=== PATIENT | male | born 1960 | race American Indian/Alaskan Native ===

== ENCOUNTER 2017-11-11 21:43 | Emergency (ER) | payer SELFPAY ==
[2017-11-12] MEDS ORDERED: ZOFRAN IV ONE (01:12)
[2017-11-12] MEDS ORDERED: DILAUDID IV ONE ×2 (01:12→02:00)
[2017-11-12] MEDS ORDERED: NACL 0.9% 1000 ML 1,000 ML IV ONE (01:16)
--- NOTE | 2017-11-12 01:21 | Emergency Department Report ---
ED Abdominal Pain HPI - General Chief Complaint: Abdominal Pain Stated Complaint: PAINFUL URINATION Time Seen by Provider: 11/12/17 01:05 Source: patient Mode of arrival: Ambulatory Limitations: No Limitations - History of Present Illness Initial Comments: 56 yo male who comes in today due to abdominal pain and gross hematuria. The patient states that he was recently treated for prostate cancer with seed implants/radiation. In the ED, he is complaining of extreme abdominal pain, hematuria, and not being able to urinate. Surgery was on Wednesday of this week. MD Complaint: abdominal pain -: This afternoon Location: suprapubic (genital area ) Radiation: none Severity scale (0 -10): 10 Quality: aching, sharp, other (throbbing ) Consistency: constant Improves With: nothing Worsens With: movement Context: other (recent urological surgery/seed implants ) Associated Symptoms: dysuria (hematuria ) Treatments Prior to Arrival: other (none) - Related Data Home Medications Medication Instructions Recorded Confirmed Last Taken Amlodipine Besylate/Benazepril 1 each PO DAILY 11/11/17 11/11/17 11/11/17 [Amlodipine-Benazepril 5-20 mg] Metformin Xr (Nf) [Metformin ER 750 mg PO DAILY 11/11/17 11/11/17 11/11/17 (Nf)] Terazosin [Hytrin] 2 mg PO QHS 11/11/17 11/11/17 11/11/17 Previous Rx's Medication Instructions Recorded Last Taken Type HYDROcodone/ACETAMINOPHEN [[place] 1 each PO Q8HR PRN #20 tablet 11/12/17 Unknown Rx 7.5-325 Tablet] Allergies Allergy/AdvReac Type Severity Reaction Status Date / Time No Known Allergies Allergy Unverified 11/11/17 22:15 ED Review of Systems ROS: Stated complaint: PAINFUL URINATION Other details as noted in HPI Constitutional: malaise, weakness Eyes: denies: eye pain, eye discharge, vision change ENT: denies: ear pain, throat pain Respiratory: denies: cough, shortness of breath, wheezing Cardiovascular: denies: chest pain, palpitations Endocrine: no symptoms reported Gastrointestinal: as per HPI Genitourinary: dysuria, hematuria Musculoskeletal: denies: back pain, joint swelling, arthralgia Skin: denies: rash, lesions Neurological: denies: headache, weakness, paresthesias Psychiatric: denies: anxiety, depression Hematological/Lymphatic: denies: easy bleeding, easy bruising ED Past Medical Hx - Past Medical History Previous Medical History?: Yes Hx Hypertension: Yes Hx Diabetes: Yes Additional medical history: protate on chemo - Surgical History Past Surgical History?: No - Social History Smoking Status: Never Smoker Substance Use Type: None - Medications Home Medications: Home Medications Medication Instructions Recorded Confirmed Last Taken Type Amlodipine Besylate/Benazepril 1 each PO DAILY 11/11/17 11/11/17 11/11/17 History [Amlodipine-Benazepril 5-20 mg] Metformin Xr (Nf) [Metformin ER 750 mg PO DAILY 11/11/17 11/11/17 11/11/17 History (Nf)] Terazosin [Hytrin] 2 mg PO QHS 11/11/17 11/11/17 11/11/17 History HYDROcodone/ACETAMINOPHEN [[place] 1 each PO Q8HR PRN #20 tablet 11/12/17 Unknown Rx 7.5-325 Tablet] ED Physical Exam - General Limitations: No Limitations General appearance: anxious - Head Head exam: Present: atraumatic, normocephalic - Eye Eye exam: Present: normal appearance - ENT ENT exam: Present: mucous membranes moist - Neck Neck exam: Present: normal inspection - Respiratory Respiratory exam: Present: normal lung sounds bilaterally. Absent: respiratory distress - Cardiovascular Cardiovascular Exam: Present: tachycardia - GI/Abdominal GI/Abdominal exam: Present: tenderness (suprapubic) - Rectal Rectal exam: Present: deferred - exam: Present: urethral discharge (gross hematuria) - Extremities Exam Extremities exam: Present: normal inspection - Back Exam Back exam: Present: normal inspection - Neurological Exam Neurological exam: Present: alert - Psychiatric Psychiatric exam: Present: anxious - Skin Skin exam: Present: warm, dry, intact, normal color. Absent: rash ED Course Vital Signs 11/11/17 11/11/17 11/12/17 21:59 22:11 02:00 Temperature 99.6 F Pulse Rate 108 H Respiratory 20 18 20 Rate Blood Pressure 145/80 O2 Sat by Pulse 100 99 Oximetry 11/12/17 02:30 Temperature Pulse Rate Respiratory 20 Rate Blood Pressure O2 Sat by Pulse Oximetry - Reevaluation(s) Reevaluation #1: 11/12/17 05:27 I spoke with [facility] just now and she stated that no one has returned their calls/pages (urology and radiation oncology). She said that she would try again and give us a call back. Reevaluation #2: 11/12/17 06:12 I spoke with radiation oncology about the patient and she okayed placing a hightower catheter. Home with a hightower catheter and pain control. ED Medical Decision Making - Lab Data Result diagrams: 11/12/17 00:56 11/12/17 00:56 - Radiology Data Radiology results: report reviewed Prostate cancer Gross hematuria Bladder outlet obstruction Urinary retention - Medical Decision Making Prostate cancer Gross hematuria Bladder outlet obstruction Urinary retention - Differential Diagnosis Prostate cancer, gross hematuria, urinary retention, bladder outlet obstruc Critical care attestation.: If time is entered above; I have spent that time in minutes in the direct care of this critically ill patient, excluding procedure time. ED Disposition Clinical Impression: Urinary retention, Gross hematuria, Prostate cancer Disposition: - TO HOME OR SELFCARE Is pt being admited?: No Does the pt Need Aspirin: No Condition: Stable Instructions: Urinary Retention in Men (ED), Acute Hematuria (ED), Prostate Cancer (GEN) Additional Instructions: Take medicine as prescribed. Follow up with your provider as needed. Prescriptions: HYDROcodone/ACETAMINOPHEN [[place] 7.5-325 Tablet] 1 each PO Q8HR PRN #20 tablet PRN Reason: Pain Referrals: RELL LAUGHLIN MD [Primary Care Provider] - 3-5 Days Time of Disposition: 06:17
[2017-11-12 01:30] LABS: Hematocrit 23.3 % (35.5-45.6); Hemoglobin 8.1 gm/dl (11.8-15.2); Mean Corpuscular HGB Conc 35 % (32-34); Mean Corpuscular Hemoglobin 33 pg (28-32); Mean Corpuscular Volume 94 fl (84-94); White Blood Count 8.4 K/mm3 (4.5-11.0)
[2017-11-12 01:31] LABS: Platelet Count 87 K/mm3 (140-440)
[2017-11-12 01:34] LABS: Alanine Aminotransferase 21 units/L (7-56); Albumin 4.3 g/dL (3.9-5); Alkaline Phosphatase 63 units/L (35-129); Anion Gap 19 mmol/L; BUN/Creatinine Ratio 14; Blood Urea Nitrogen 19 mg/dL (9-20); Calcium 8.6 mg/dL (8.4-10.2); Carbon Dioxide 24 mmol/L (22-30); Chloride 95.3 mmol/L (98-107); Glucose 210 mg/dL (75-100); Lipase 21 units/L (13-60); Potassium 4.3 mmol/L (3.6-5.0); Sodium 134 mmol/L (137-145); Total Protein 6.4 g/dL (6.3-8.2)
[2017-11-12 01:39] LABS: INR 1.13 (0.87-1.13)
[2017-11-12] MEDS ORDERED: NACL ONE (01:41)
[2017-11-12 02:24] LABS: Basophils % (Manual) 0 % (0.0-1.8); Blastocytes % (Manual) 0 %; Eosinophils % (Manual) 0 % (0.0-4.3)
[2017-11-12 02:25] LABS: Microcytosis 1+; Target Cells 1+
[2017-11-12 02:26] LABS: Anisocytosis 1+; Diff Status Complete; Platelet Estimate Appears Decreased
--- NOTE | 2017-11-12 03:41 | Cat Scan Report ---
FINAL REPORT EXAM: CT ABDOMEN PELVIS W CONTRAST. HISTORY: Abdominal pain, hematuria. Status post radiation prostate procedure for prostate cancer. TECHNIQUE: Axial CT images of the abdomen and pelvis were obtained, following the administration of intravenous contrast only. Delayed axial images and coronal and sagittal reformatted images were also obtained. No prior studies are available for comparison. FINDINGS: The liver, biliary tree, pancreas, adrenal glands, and left kidney are unremarkable. A 3.0 cm cyst is seen in the right lower renal pole, which contains thin septation at its lateral aspect. An additional 5 mm low attenuating lesion is seen in the medial right upper pole, too small to characterize. There are multiple subcentimeter calcified gallstones. The spleen is enlarged, measuring up to 18.5 cm in length. Evaluation of the bowel is limited due to lack of oral contrast. There is a small hiatal hernia. There is moderate residual stool in the colon. There is no intestinal obstruction or free air. Of note the, the appendix is normal. There is mild distal rectal wall thickening, which is nonspecific and may represent post radiation changes. Clinical correlation is recommended. The abdominal aorta is normal in caliber. There is no pathologic abdominal or pelvic lymphadenopathy. There is no free or loculated fluid collection. There are minimal bilateral fat containing inguinal hernias. The urinary bladder is markedly distended, with superior tip extending to the level of the umbilicus. The inferior aspect of the prostate gland is enlarged, measuring 5.3 x 5.0 cm. There is diffuse heterogeneity of the prostate gland. There is a lobulated, heterogeneous soft tissue mass which protrudes into the bladder base measuring at least 7.7 x 7.3 x 8.2 cm. This contains 4.3 cm rounded central component which is slightly hypodense, possibly necrosis, with scattered peripheral foci of air. This intraluminal heterogeneous component is contiguous with the prostate gland, and most likely represents necrotic prostate tissue/neoplasm (given patient's reported history). There are surrounding wispy foci of soft tissue hyperdensity in the bladder lumen, most likely hemorrhage. A small amount of intraluminal air is noted anteriorly in the bladder, in keeping with recent instrumentation. There are scattered moderate spondylotic changes in the spine. A 4 mm sclerotic lesion is seen in the left anterior acetabulum. This is nonspecific, and correlation with PSA level is recommended. In this patient with prostate cancer, whole body nuclear medicine bone scan is suggested for further evaluation if not recently performed. There are scattered foci of minimal subsegmental dependent atelectasis at the left posterior lung base. These findings were discussed with Dr. Huerta at 3:25 a.m. EST 11/12/2017. IMPRESSION: 1. 7.7 x 7.3 x 8.2 cm heterogeneous soft tissue mass protruding into the bladder base, with possible central necrosis, and scattered peripheral foci of gas. This is suspicious for necrotic prostate tissue/neoplasm. Surrounding curvilinear foci of soft tissue in the bladder lumen, most likely superimposed hemorrhage. 2. Markedly urinary bladder, query bladder outlet obstruction. 3. 3.0 cm minimally complex cyst in the right lower renal pole, with thin septation its lateral aspect. Continued imaging surveillance is recommended. 4. Moderate splenomegaly. Calcified gallstones. 5. Nonspecific 4 mm sclerotic lesion in the left anterior acetabulum. Correlation with PSA level is recommended. In this patient with prostate cancer, whole-body nuclear medicine bone scan should be considered, if not recently performed.
[2017-11-12] MEDS ORDERED: ZOFRAN ONE (05:27)
[2017-11-12] MEDS ORDERED: DILAUDID ONE (05:27)
[2017-11-12 06:40] VITALS: BP 116/61
== END 2017-11-12 07:23 | disposition home or self-care (01) ==
LOC: ED 21:43
DX: R31.0 Gross hematuria (principal); R33.9 Retention of urine, unspecified; C61 Malignant neoplasm of prostate; I10 Essential (primary) hypertension; E11.9 Type 2 diabetes mellitus without complications
CPT/HCPCS: 36415; 51702; 74177; 80053; 83690; 85007; 85025; 85610; 85730; 96361; 96374; 96375; 99284; J1170; J2405; J7030; Q9967; 51701